=== PATIENT | female | born 1970 | race African-American/Black ===

== ENCOUNTER 2020-03-01 23:47 | Inpatient (IN) | payer MEDICAID, OTHER ==
[~2020-03-01] VITALS: Ht 152.4 cm; Wt 94.7 kg
[2020-03-02] MEDS ORDERED: LABETALOL HCL 5 MG/ML 4ML SYRINGE IV ONE (00:45)
[2020-03-02 02:04] LABS: Basophils # (auto) 0 10 ^3/uL (0-0.2); Basophils % (auto) 0.7 % (0.0-2.0); Eosinophils # (auto) 0 10 ^3/uL (0-0.8); Eosinophils % (auto) 0.7 % (0.0-7.0); Hematocrit 38.1 % (36.0-46.0); Hemoglobin 12.5 g/dL (12.2-16.2); Lymphocytes # (auto) 1.8 10 ^3/uL (0.4-5.4); Lymphocytes % (auto) 39.3 % (10.0-50.0); Mean Corpuscular Hemoglobin 28.3 pg (28.0-32.0); Mean Corpuscular Hgb Conc. 32.7 g/dL (32.0-36.0); Mean Corpuscular Volume 86.6 fL (80.0-100.0); Monocytes # (auto) 0.4 10 ^3/uL (0-1.3); Monocytes % (auto) 9.5 % (0.0-12.0); Neutrophils # (auto) 2.3 10 ^3/uL (1.6-8.6); Neutrophils % (auto) 49.8 % (37.0-80.0); Nucleated Red Blood Cells % 0.1 %; Platelet Count (auto) 235 10^3/uL (140-450); Red Cell Distribution Width 19.6 % (11.8-14.3); White Blood Cell 4.5 10^3/uL (4.4-10.8)
[2020-03-02 02:11] LABS: INR 1.03 (0.9-1.15); Partial Thromboplastin Time 24.3 sec (23.64-32.05)
[2020-03-02 02:15] LABS: Alanine Aminotransferase 58 U/L (13-56); Anion Gap 10 (5-15); Aspartate Aminotransferase 68 U/L (15-37); Blood Urea Nitrogen 9 mg/dL (7-18); Calcium 8.4 mg/dL (8.5-10.1); Carbon Dioxide 26 mmol/L (21-32); Chloride 103 mmol/L (98-107); GFR African American 76 mL/min; GFR Non-African American 63 mL/min; Glucose 100 mg/dL (74-106); Magnesium 1.7 mg/dL (1.6-2.6); Sodium 139 mmol/L (136-145)
[2020-03-02 02:16] LABS: Potassium 2.5 mmol/L (3.5-5.1)
[2020-03-02 02:20] LABS: Alkaline Phosphatase 156 U/L (45-117); Bilirubin, Total 0.8 mg/dL (0.2-1.0); Total Protein 7.1 g/dL (6.4-8.2)
[2020-03-02 02:22] LABS: Alcohol, Urine < 3.0 mg/dL (0-10); Amphetamine Screen, Urine NEGATIVE (NEGATIVE); Barbiturate Scree,Urine NEGATIVE (NEGATIVE); Benzodiazephine Screen, Urine NEGATIVE (NEGATIVE); Cannabinoid Screen, Urine NEGATIVE (NEGATIVE); Cocaine Screen, Urine NEGATIVE (NEGATIVE); Opiate Scree,Urine NEGATIVE (NEGATIVE); Phencyclidine Screen, Urine NEGATIVE (NEGATIVE)
[2020-03-02] MEDS ORDERED: POTASSIUM EFFERVESENT TAB 25 MEQ PO ONE ×2 (03:00→04:00)
[2020-03-02] MEDS ORDERED: MORPHINE SULFATE 4 MG/ML SYR/VIAL IV PRN (04:00)
[2020-03-02] MEDS ORDERED: NITROGLYCERIN 0.4 MG SL TAB SL PRN ×2 (04:00)
[2020-03-02] MEDS ORDERED: ONDANSETRON HCL 4 MG/2 ML VIAL IV PRN (04:00)
[2020-03-02] MEDS ORDERED: LORazepam 0.5 MG TAB PO PRN (04:00)
[2020-03-02] MEDS ORDERED: ACETAMINOPHEN 325 MG TAB PO PRN (04:00)
[2020-03-02] MEDS: cloNIDine HCL 0.1 MG TAB PO PRN (05:08)
[2020-03-02 05:35] LABS: Basophils # (auto) 0 10 ^3/uL (0-0.2); Basophils % (auto) 0.4 % (0.0-2.0); Eosinophils # (auto) 0 10 ^3/uL (0-0.8); Eosinophils % (auto) 0.7 % (0.0-7.0); Hematocrit 38.9 % (36.0-46.0); Hemoglobin 12.9 g/dL (12.2-16.2); Lymphocytes # (auto) 1.9 10 ^3/uL (0.4-5.4); Lymphocytes % (auto) 38.4 % (10.0-50.0); Mean Corpuscular Hemoglobin 28.7 pg (28.0-32.0); Mean Corpuscular Hgb Conc. 33.2 g/dL (32.0-36.0); Mean Corpuscular Volume 86.4 fL (80.0-100.0); Monocytes # (auto) 0.4 10 ^3/uL (0-1.3); Monocytes % (auto) 7.6 % (0.0-12.0); Neutrophils # (auto) 2.6 10 ^3/uL (1.6-8.6); Neutrophils % (auto) 52.9 % (37.0-80.0); Nucleated Red Blood Cells % 0.1 %; Platelet Count (auto) 206 10^3/uL (140-450); Red Cell Distribution Width 19.5 % (11.8-14.3); White Blood Cell 4.9 10^3/uL (4.4-10.8)
[2020-03-02 06:09] LABS: BUN/Creatinine Ratio 6.1; Calcium 8.6 mg/dL (8.5-10.1)
[2020-03-02 06:24] LABS: Potassium 2.8 mmol/L (3.5-5.1)
[2020-03-02] MEDS ORDERED: POTASSIUM CHL 20MEQ/100ML 100 ML IV SCH (06:45)
[2020-03-02] MEDS: POTASSIUM CHL 20MEQ/100ML 100 ML IV SCH ×3 (08:37→13:20)
[2020-03-02] MEDS ORDERED: METOPROLOL TARTRATE 25 MG TAB PO SCH (10:00)
[2020-03-02] MEDS ORDERED: CLOPIDOGREL BISULFATE 75 MG TAB PO SCH (10:00)
[2020-03-02] MEDS: DOCUSATE SOD 100 MG CAP PO SCH (10:00)
[2020-03-02] MEDS: ASPirin 81 mg TAB PO SCH (10:10)
[2020-03-02] MEDS: LISINOPRIL 10 MG TAB PO SCH (10:12)
[2020-03-02] MEDS ORDERED: HCTZ25T PO (10:37)
[2020-03-02] MEDS ORDERED: AMLO10TA13 PO (10:37)
[2020-03-02] MEDS: ATORVASTATIN 20 MG TAB PO SCH (22:17)
[2020-03-02 22:19] VITALS: BP 158/76
--- NOTE | 2020-03-02 22:19 | NUR ---
Patient was brought up to the unit via stretcher from the emergency room. Patient is AO x4 ambulatory and on room air. She at the moment does not complain of chest pain or shortness of breath. Breath sounds were clear to auscultation. Plan of care was explained to her and all questions answered. Bed is locked in lowest position with side rails up x2. Will continue to monitor.
[2020-03-03] MEDS: cloNIDine HCL 0.1 MG TAB PO PRN ×2 (02:05→06:36)
[2020-03-03 05:00] VITALS: BP 162/77
--- NOTE | 2020-03-03 06:36 | NUR ---
Patient stated that she wants to go home to her kids. I explained the dangers of her going home with a dangerously high blood pressure as she did when she came in. She agreed to stay for now but said she wants to see the doctor. I explained that the doctor will make their rounds during the daytime and to write down any questions she may have for them.
--- NOTE | 2020-03-03 08:00 | NUR ---
RECEIVED PATIENT ALERT AND ORIENTED X4, NOT IN DISTRESS, CLEAR LS IN BILATERAL LUNG SOUNDS, RR=18 EBG=241%, DEEP BREATHING AND COUGHING WAS ENCOURAGED, DEMONSTRATED UNDERSTANDING, DENIED SOB AND CHEST PAIN AT THIS MOMENT, SR R=72 ON TELE MONITOR, ABDOMEN SOFT WITH ACTIVE BS IN ALL FOUR QUADRANTS, LAST BM ON 03/01/20 REPORTED, SKIN INTACT WARM TO TOUCH, AMBULATED IN THE ROOM, TOLERATED WELL, RESTING ON BED, DENIED PAIN, HEAD OF BED ELEVATED, BED ON LOW POSITION, RAILS UP X2, CALL LIGHT ON REACH, PENDING CARDIAC CONSULT, WILL CONTINUE MONITORING.
[2020-03-03 08:55] VITALS: BP 157/73
[2020-03-03] MEDS: ASPirin 81 mg TAB PO SCH (10:46)
[2020-03-03] MEDS: DOCUSATE SOD 100 MG CAP PO SCH (10:46)
[2020-03-03] MEDS: amLODIPine BESYLATE 5 MG TAB PO SCH (10:47)
[2020-03-03] MEDS: LISINOPRIL 10 MG TAB PO SCH ×3 (10:48→21:58)
--- NOTE | 2020-03-03 11:00 | NUR ---
POTASSIUM L=2.8 ON 03/02/20 REPORTED, NO LAB ORDER DONE TODAY, DR EWING WAS CALLED FOR UPDATES AND FOLLOW UP AND LEFT A MESSAGE, WAITING FOR CALL BACK.
[2020-03-03 12:23] VITALS: BP 156/78
--- NOTE | 2020-03-03 16:00 | NUR ---
PENDING ECHO ORDER AND POTASSIUM LEVEL REPORTED BY DR. WANG, DR. WANG AND DR. EWING WAS CALLED FOR UPDATES AND FOLLOW UP AND LEFT A MESSAGE, WAITING FOR CALL BACK.
[2020-03-03 16:47] LABS: BUN/Creatinine Ratio 8.1; Calcium 8.5 mg/dL (8.5-10.1); Potassium 3.4 mmol/L (3.5-5.1)
[2020-03-03 17:02] VITALS: BP 145/79
--- NOTE | 2020-03-03 19:34 | NUR ---
POTASSIUM L=3.4, DR. EWING WAS NOTIFIED,REPORT WAS GIVEN TO THE TOOLMAKER RN.
[2020-03-03] MEDS ORDERED: POTASSIUM CHL 20 Meq TABLET PO ONE (19:45)
[2020-03-03] MEDS: ATORVASTATIN 20 MG TAB PO SCH (21:57)
[2020-03-03 22:00] VITALS: BP 153/111
[2020-03-04 05:00] VITALS: BP 121/72
--- NOTE | 2020-03-04 07:20 | NUR ---
Opening Shift Note Assumed care of patient, pt awake and alert laying down in bed. Pt is on room air with even and unlabored respirations. No S/S of distress/SOB or pain at this time. bed is in lowest position, wheels are locked, side rails up x2, and call light is within reach. Instructed on POC and to call for assist PRN, will continue to monitor for changes Q1hr and PRN.
[2020-03-04 09:00] VITALS: BP 168/92
[2020-03-04] MEDS: DOCUSATE SOD 100 MG CAP PO SCH (09:12)
[2020-03-04] MEDS: LISINOPRIL 10 MG TAB PO SCH (09:12)
[2020-03-04] MEDS: ASPirin 81 mg TAB PO SCH (09:12)
[2020-03-04] MEDS: amLODIPine BESYLATE 5 MG TAB PO SCH (09:13)
--- NOTE | 2020-03-04 10:30 | NUR ---
LAB SCIENTIST AT BEDSIDE
[2020-03-04 13:00] VITALS: BP 135/63
--- NOTE | 2020-03-04 14:14 | NUR ---
SPOKE WITH DR. EWING SPOKE WITH DR. EWING RE: D/C AND LISINOPRIL RX. OK TO D/C PT AND CALL IN RX FOR LISINOPRIL TO PTS PHARMACY. PT INFORMED. WILL CARRY OUT D/C ORDER.
--- NOTE | 2020-03-04 15:24 | NUR ---
CALLED LISINOPRIL RX INTO PHARMACY. RX FOR LISINOPRIL CALLED INTO [facility] [address] [facility], . SPOKE WITH ELVIA, PT INFORMED.
--- NOTE | 2020-03-04 16:15 | NUR ---
Patient Discharged Discharge instructions given as ordered. Encourage to follow up with PMD as instructed. All questions and concerns addressed. Patient verbalized understanding. Medication reconciliation form completed and copy given to patient. IV removed with catheter intact, pressure dressing applied, patient tolerated well. Telemetry unit returned to ICU. Patient alert and awake, on RA, with even and unlabored respirations. Patient taken to vehicle via wheelchair with all personal belongings, accompanied by staff. No distress noted at time of departure.
== END 2020-03-04 16:15 | disposition home or self-care (01) | DRG 199 ==
LOC: EDBD 23:47 → ER 03-02 → OVERFLOW 03-02 00:01 → TELE-CENTR 03-02 22:17
PROVIDERS: ADMIT Hospitalist; ATTEND Internal Medicine
DX: I16.0 Hypertensive urgency (principal); R07.89 Other chest pain; E66.01 Morbid (severe) obesity due to excess calories; E87.6 Hypokalemia; F17.210 Nicotine dependence, cigarettes, uncomplicated; I10 Essential (primary) hypertension; Z68.41 Body mass index [BMI] 40.0-44.9, adult; I25.2 Old myocardial infarction; Z79.899 Other long term (current) drug therapy
CPT/HCPCS: 36415; 71045; 80048; 80053; 80061; 80307; 83735; 83880; 84443; 84484; 85025; 85379; 85610; 85730; 93005; 93306; 96374; 99291; G0378; J3480; J3490

== ENCOUNTER 2020-12-03 21:03 | Emergency (ER) | payer MEDICAID ==
[~2020-12-03] VITALS: Ht 165.1 cm; Wt 98.9 kg
[~2020-12-03 21:03] MED LIST: AMLO-496 PO
[2020-12-04 01:00] LABS: Basophils # (auto) 0 10 ^3/uL (0-0.2); Basophils % (auto) 0.4 % (0.0-2.0); Eosinophils # (auto) 0.1 10 ^3/uL (0-0.8); Hematocrit 35.2 % (36.0-46.0); Hemoglobin 11.7 g/dL (12.2-16.2); Lymphocytes # (auto) 1.5 10 ^3/uL (0.4-5.4); Lymphocytes % (auto) 20.5 % (10.0-50.0); Mean Corpuscular Hemoglobin 30.3 pg (28.0-32.0); Mean Corpuscular Hgb Conc. 33.3 g/dL (32.0-36.0); Monocytes # (auto) 0.6 10 ^3/uL (0-1.3); Monocytes % (auto) 7.8 % (0.0-12.0); Neutrophils # (auto) 5.3 10 ^3/uL (1.6-8.6); Neutrophils % (auto) 70.3 % (37.0-80.0); Nucleated Red Blood Cells % 0.1 %; Platelet Count (auto) 255 10^3/uL (140-450); Red Blood Cells 3.87 10^6/uL (4.0-5.20); Red Cell Distribution Width 14.6 % (11.8-14.3); White Blood Cell 7.5 10^3/uL (4.4-10.8)
[2020-12-04 01:21] LABS: Alanine Aminotransferase 25 U/L (13-56); Albumin 3.4 g/dL (3.4-5.0); Anion Gap 8 (5-15); Aspartate Aminotransferase 25 U/L (15-37); BUN/Creatinine Ratio 9.2; Blood Urea Nitrogen 8 mg/dL (7-18); Calcium 8.8 mg/dL (8.5-10.1); Carbon Dioxide 25 mmol/L (21-32); Chloride 103 mmol/L (98-107); GFR African American 89 mL/min; GFR Non-African American 74 mL/min; Glucose 111 mg/dL (74-106); Potassium 3.4 mmol/L (3.5-5.1); Sodium 136 mmol/L (136-145)
[2020-12-04 01:26] LABS: Alkaline Phosphatase 89 U/L (45-117); Bilirubin, Total 0.3 mg/dL (0.2-1.0); Total Protein 7.8 g/dL (6.4-8.2)
[2020-12-04] MEDS ORDERED: ACETAMINOPHEN 500 MG TAB PO ONE (01:30)
[2020-12-04] MEDS ORDERED: HYDROcodone-ACET 5/325MG TAB PO ONE (02:45)
[2020-12-04] MEDS ORDERED: ONDANSETRON ODT 4 MG TAB PO ONE (02:45)
[2020-12-04] MEDS ORDERED: HYDROcodone-ACET 10/325MG TAB PO ONE (03:00)
[2020-12-04 03:20] VITALS: BP 168/76
== END 2020-12-04 03:28 | disposition home or self-care (01) ==
LOC: ER 21:05
DX: M25.472 Effusion, left ankle (principal); R07.9 Chest pain, unspecified; I10 Essential (primary) hypertension; F17.210 Nicotine dependence, cigarettes, uncomplicated
CPT/HCPCS: 36415; 71045; 80053; 83880; 84484; 85025; 99284; Q0162

== ENCOUNTER 2022-06-07 21:43 | Emergency (ER) | payer MEDICAID ==
[~2022-06-07] VITALS: Ht 165.1 cm; Wt 79.0 kg
[2022-06-08 01:07] VITALS: BP 134/70
== END 2022-06-08 01:08 | disposition home or self-care (01) ==
LOC: ER 21:43
DX: M25.562 Pain in left knee (principal); M79.602 Pain in left arm; I10 Essential (primary) hypertension; Z86.73 Personal history of transient ischemic attack (TIA), and cerebral infarction without residual deficits
CPT/HCPCS: 73560

== ENCOUNTER 2022-12-01 18:09 | Emergency (ER) | payer MEDICAID ==
[~2022-12-01] VITALS: Ht 165.1 cm; Wt 186.0 kg
[2022-12-01 18:12] VITALS: BP 151/83
[2022-12-01 18:52] LABS: Eosinophils # (auto) 0.1 10 ^3/uL (0-0.8); Eosinophils % (auto) 1.3 % (0.0-7.0); Lymphocytes # (auto) 1.9 10 ^3/uL (0.4-5.4); Monocytes # (auto) 0.3 10 ^3/uL (0-1.3)
[2022-12-01 18:54] LABS: Basophils # (auto) 0 10 ^3/uL (0-0.2); Mean Corpuscular Hemoglobin 24.5 pg (28.0-32.0); Mean Corpuscular Hgb Conc. 32.5 g/dL (32.0-36.0); Mean Corpuscular Volume 75.5 fL (80.0-100.0); Monocytes % (auto) 5.6 % (0.0-12.0); Neutrophils # (auto) 2.3 10 ^3/uL (1.6-8.6); Neutrophils % (auto) 51.1 % (37.0-80.0); Nucleated Red Blood Cells % 0.2 %; Red Blood Cells 4.91 10^6/uL (4.0-5.20); Red Cell Distribution Width 17.7 % (11.8-14.3); White Blood Cell 4.6 10^3/uL (4.4-10.8)
[2022-12-01 19:10] LABS: INR 0.91 (0.9-1.15); Partial Thromboplastin Time 29.4 sec (24.6-33.4)
[2022-12-01 19:12] LABS: Albumin 3.6 g/dL (3.4-5.0); Calcium 9.7 mg/dL (8.5-10.1); Magnesium 1.9 mg/dL (1.6-2.6); Potassium 3.6 mmol/L (3.5-5.1)
[2022-12-01 19:15] LABS: Bilirubin, Total 0.4 mg/dL (0.2-1.0); Total Protein 7.7 g/dL (6.4-8.2)
[2022-12-01 22:12] LABS: Urine Bacteria FEW /hpf (None Seen); Urine Blood Negative /uL (Negative); Urine Specific Gravity 1.017 (1.001-1.035); Urine WBC 12 /hpf (0 - 5)
[2022-12-02] MEDS ORDERED: ACETAMINOPHEN 325 MG TAB PO PRN (01:45)
[2022-12-02] MEDS ORDERED: HYDROcodone-ACET 5/325MG TAB PO PRN (01:45)
[2022-12-02] MEDS ORDERED: NITROGLYCERIN 0.4 MG SL TAB SL PRN (01:45)
[2022-12-02] MEDS ORDERED: DOCUSATE SOD 100 MG CAP PO PRN (01:45)
[2022-12-02] MEDS ORDERED: MORPHINE SULFATE INJ 2 MG/ml SYRG IV PRN (01:45)
[2022-12-02] MEDS ORDERED: ONDANSETRON HCL 4 MG/2 ML VIAL IV PRN (01:45)
[2022-12-02] MEDS ORDERED: cefTRIAXone 1GM/50ML D5W 50 ML IV ONE (01:45)
[2022-12-02] MEDS ORDERED: SODIUM CHLOR 0.9% PF (SALINE LOCK) 10ML VIAL/SYR IV SCH (06:00)
[2022-12-02] MEDS ORDERED: cefTRIAXone 1GM/50ML D5W 50 ML IV SCH (09:00)
[2022-12-02] MEDS ORDERED: ATOR-47 PO (21:53)
[2022-12-02] MEDS ORDERED: GABA300C10 PO (21:53)
[2022-12-02] MEDS ORDERED: HYDR25TA5 PO (21:53)
[2022-12-02] MEDS ORDERED: ALLO100T PO (21:53)
[2022-12-03 05:15] LABS: Basophils # (auto) 0.1 10 ^3/uL (0-0.2); Eosinophils # (auto) 0.1 10 ^3/uL (0-0.8); Hemoglobin 11.6 g/dL (12.2-16.2); Lymphocytes # (auto) 2.5 10 ^3/uL (0.4-5.4); Monocytes # (auto) 0.3 10 ^3/uL (0-1.3); Nucleated Red Blood Cells % 0.1 %; White Blood Cell 4.9 10^3/uL (4.4-10.8)
[2022-12-03 05:18] LABS: Basophils % (auto) 1.2 % (0.0-2.0); Eosinophils % (auto) 1.6 % (0.0-7.0); Hematocrit 34.7 % (36.0-46.0); Lymphocytes % (auto) 51.5 % (10.0-50.0); Mean Corpuscular Hemoglobin 24.7 pg (28.0-32.0); Mean Corpuscular Hgb Conc. 33.4 g/dL (32.0-36.0); Mean Corpuscular Volume 73.9 fL (80.0-100.0); Neutrophils # (auto) 1.9 10 ^3/uL (1.6-8.6); Neutrophils % (auto) 38.7 % (37.0-80.0); Red Blood Cells 4.69 10^6/uL (4.0-5.20); Red Cell Distribution Width 17.6 % (11.8-14.3)
[2022-12-03 05:27] LABS: Potassium 3.2 mmol/L (3.5-5.1)
[2022-12-03 05:35] LABS: Albumin 3.2 g/dL (3.4-5.0); BUN/Creatinine Ratio 14.5 (10.0-20.0); Bilirubin, Total 0.9 mg/dL (0.2-1.0); Calcium 8.8 mg/dL (8.5-10.1)
[2022-12-03] MEDS ORDERED: POTA-264 PO (13:08)
[2022-12-03] MEDS ORDERED: HYDR-4798 PO (13:09)
== END 2022-12-02 02:40 | disposition left against medical advice (07) ==
LOC: ER 18:09 → TELE 12-02 01:40 → UNDOADMIN 12-02 01:40 → UNDODISIN 12-02 02:35
DX: G45.9 Transient cerebral ischemic attack, unspecified (principal); R20.2 Paresthesia of skin; E87.8 Other disorders of electrolyte and fluid balance, not elsewhere classified; D64.9 Anemia, unspecified; I12.9 Hypertensive chronic kidney disease with stage 1 through stage 4 chronic kidney disease, or unspecified chronic kidney disease; N18.9 Chronic kidney disease, unspecified; Z86.73 Personal history of transient ischemic attack (TIA), and cerebral infarction without residual deficits
CPT/HCPCS: 36415; 70450; 71045; 80053; 81001; 83735; 83880; 84484; 85025; 85610; 85730; 87086; 93005; G0378

== ENCOUNTER 2022-12-02 14:12 | Inpatient (IN) | payer MEDICAID ==
[~2022-12-02] VITALS: Ht 165.1 cm; Wt 86.5 kg
[2022-12-02] MEDS ORDERED: NITROGLYCERIN 0.4 MG SL TAB SL PRN (19:00)
[2022-12-02] MEDS ORDERED: MORPHINE SULFATE INJ 2 MG/ml SYRG IV PRN (19:00)
[2022-12-02] MEDS ORDERED: ACETAMINOPHEN 325 MG TAB PO PRN (19:00)
[2022-12-02] MEDS ORDERED: DOCUSATE SOD 100 MG CAP PO PRN (19:00)
[2022-12-02] MEDS ORDERED: HYDROcodone-ACET 5/325MG TAB PO PRN (19:00)
[2022-12-02] MEDS ORDERED: ONDANSETRON HCL 4 MG/2 ML VIAL IV PRN (19:00)
[2022-12-02 19:03] LABS: Urine Bacteria NONE SEEN /hpf (None Seen); Urine Blood Negative /uL (Negative); Urine WBC 5 /hpf (0 - 5)
[2022-12-02 19:04] LABS: Basophils # (auto) 0 10 ^3/uL (0-0.2); Basophils % (auto) 0.7 % (0.0-2.0); Eosinophils # (auto) 0.1 10 ^3/uL (0-0.8); Eosinophils % (auto) 1.2 % (0.0-7.0); Hematocrit 37.2 % (36.0-46.0); Hemoglobin 11.9 g/dL (12.2-16.2); Lymphocytes # (auto) 1.6 10 ^3/uL (0.4-5.4); Lymphocytes % (auto) 34.5 % (10.0-50.0); Mean Corpuscular Hemoglobin 24.4 pg (28.0-32.0); Mean Corpuscular Hgb Conc. 31.9 g/dL (32.0-36.0); Mean Corpuscular Volume 76.5 fL (80.0-100.0); Monocytes # (auto) 0.3 10 ^3/uL (0-1.3); Monocytes % (auto) 5.7 % (0.0-12.0); Neutrophils # (auto) 2.7 10 ^3/uL (1.6-8.6); Neutrophils % (auto) 57.9 % (37.0-80.0); Nucleated Red Blood Cells % 0.1 %; Red Blood Cells 4.86 10^6/uL (4.0-5.20); Red Cell Distribution Width 17.5 % (11.8-14.3); White Blood Cell 4.7 10^3/uL (4.4-10.8)
[2022-12-02 19:24] LABS: Albumin 3.3 g/dL (3.4-5.0); Potassium 3.5 mmol/L (3.5-5.1)
[2022-12-02 19:26] LABS: Bilirubin, Total 0.7 mg/dL (0.2-1.0); Total Protein 7.3 g/dL (6.4-8.2)
[2022-12-02 19:33] LABS: INR 0.97 (0.9-1.15); Partial Thromboplastin Time 26.8 sec (24.6-33.4)
[2022-12-02] MEDS ORDERED: ALLO100T PO (21:53)
[2022-12-02] MEDS ORDERED: GABA300C10 PO (21:53)
[2022-12-02] MEDS ORDERED: ATOR-47 PO (21:53)
[2022-12-02] MEDS ORDERED: HYDR25TA5 PO (21:53)
[2022-12-02] MEDS ORDERED: HCTZ 25 MG TAB PO SCH (22:00)
[2022-12-02] MEDS ORDERED: LORazepam 2MG/ML-1ML VIAL IV PRN (22:15)
[2022-12-02] MEDS: SODIUM CHLOR 0.9% PF (SALINE LOCK) 10ML VIAL/SYR IV SCH (22:27)
[2022-12-02 22:37] LABS: Cholesterol 120 mg/dL (< 200); Triglycerides 109 mg/dL (< 150)
[2022-12-02 22:40] LABS: HDL Cholesterol 44 mg/dL (40-59); LDL Cholesterol 66 mg/dL (< 100)
[2022-12-02] MEDS: ATORVASTATIN 20 MG TAB PO SCH (23:05)
[2022-12-02] MEDS: GABAPENTIN 300 MG CAP PO SCH (23:05)
[2022-12-03] MEDS: SODIUM CHLOR 0.9% PF (SALINE LOCK) 10ML VIAL/SYR IV SCH ×3 (06:19→21:14)
[2022-12-03] MEDS: HCTZ 25 MG TAB PO SCH ×2 (06:34→18:00)
[2022-12-03] MEDS ORDERED: amLODIPine BESYLATE 5 MG TAB PO SCH (10:00)
[2022-12-03] MEDS: ALLOPURINOL 100 MG TAB PO SCH (10:08)
[2022-12-03] MEDS: GABAPENTIN 300 MG CAP PO SCH ×2 (10:09→21:14)
[2022-12-03 12:51] VITALS: BP 129/79
[2022-12-03] MEDS ORDERED: POTA-264 PO (13:08)
[2022-12-03] MEDS ORDERED: HYDR-4798 PO (13:09)
[2022-12-03] MEDS: SOD CHL 0.45% 1,000 ML IV SCH (14:41)
[2022-12-03 16:00] VITALS: BP 130/75
[2022-12-03] MEDS ORDERED: IOHEXOL 350 MG/ML 100ML IJ ONE (18:17)
[2022-12-03] MEDS: ATORVASTATIN 20 MG TAB PO SCH (21:13)
[2022-12-03] MEDS: LISINOPRIL 10 MG TAB PO SCH (21:14)
[2022-12-03 22:00] VITALS: BP 140/53
[2022-12-04] MEDS: SOD CHL 0.45% 1,000 ML IV SCH ×3 (03:52→21:35)
[2022-12-04 05:00] VITALS: BP 130/70
[2022-12-04] MEDS: HCTZ 25 MG TAB PO SCH ×2 (05:23→18:00)
[2022-12-04] MEDS: SODIUM CHLOR 0.9% PF (SALINE LOCK) 10ML VIAL/SYR IV SCH ×3 (05:24→21:35)
[2022-12-04 09:00] VITALS: BP 135/75
[2022-12-04] MEDS: cefTRIAXone 1GM/50ML D5W 50 ML IV SCH (09:12)
[2022-12-04] MEDS: GABAPENTIN 300 MG CAP PO SCH ×2 (09:12→21:35)
[2022-12-04] MEDS: ALLOPURINOL 100 MG TAB PO SCH (09:13)
[2022-12-04] MEDS: LISINOPRIL 10 MG TAB PO SCH ×3 (09:21→21:37)
[2022-12-04] MEDS ORDERED: ASPirin-EC 81 mg tab PO SCH (10:00)
[2022-12-04] MEDS ORDERED: CLOPIDOGREL BISULFATE 75 MG TAB PO SCH (10:00)
[2022-12-04 13:00] VITALS: BP 130/69
[2022-12-04 16:49] VITALS: BP 117/72
[2022-12-04 17:06] LABS: Alcohol, Urine < 3.0 mg/dL (0-10); Amphetamine Screen, Urine NEGATIVE (NEGATIVE); Barbiturate Scree,Urine NEGATIVE (NEGATIVE); Benzodiazephine Screen, Urine NEGATIVE (NEGATIVE); Cannabinoid Screen, Urine POSITIVE (NEGATIVE); Cocaine Screen, Urine NEGATIVE (NEGATIVE); Opiate Scree,Urine NEGATIVE (NEGATIVE); Phencyclidine Screen, Urine NEGATIVE (NEGATIVE)
[2022-12-04 22:00] VITALS: BP 121/99
[2022-12-05 05:00] VITALS: BP 133/77
[2022-12-05] MEDS: HCTZ 25 MG TAB PO SCH (06:00)
[2022-12-05] MEDS: SODIUM CHLOR 0.9% PF (SALINE LOCK) 10ML VIAL/SYR IV SCH ×2 (06:13→14:00)
[2022-12-05] MEDS: ALLOPURINOL 100 MG TAB PO SCH (08:47)
[2022-12-05] MEDS: GABAPENTIN 300 MG CAP PO SCH (08:47)
[2022-12-05] MEDS: cefTRIAXone 1GM/50ML D5W 50 ML IV SCH (08:47)
[2022-12-05] MEDS: LISINOPRIL 10 MG TAB PO SCH (08:58)
[2022-12-05 09:00] VITALS: BP 138/71
[2022-12-05 13:00] VITALS: BP 147/77
[2022-12-05] MEDS ORDERED: LISINOPRIL 10 MG TAB PO ONE (13:00)
[2022-12-05 13:55] VITALS: BP 147/77
== END 2022-12-05 15:00 | disposition home or self-care (01) | DRG 199 ==
LOC: ER 14:12 → TELE 18:59 → TELE-CENTR 12-03 12:27
PROVIDERS: ADMIT Nurse Practitioner Family; ATTEND Hospitalist
DX: I16.1 Hypertensive emergency (principal); E44.1 Mild protein-calorie malnutrition; G45.9 Transient cerebral ischemic attack, unspecified; I69.354 Hemiplegia and hemiparesis following cerebral infarction affecting left non-dominant side; R53.1 Weakness; Z20.822 Contact with and (suspected) exposure to COVID-19; M10.9 Gout, unspecified; N18.9 Chronic kidney disease, unspecified; I12.9 Hypertensive chronic kidney disease with stage 1 through stage 4 chronic kidney disease, or unspecified chronic kidney disease; N39.0 Urinary tract infection, site not specified; F17.200 Nicotine dependence, unspecified, uncomplicated; Z82.49 Family history of ischemic heart disease and other diseases of the circulatory system; Z68.31 Body mass index [BMI] 31.0-31.9, adult
CPT/HCPCS: 36415; 70496; 70551; 80053; 80061; 80307; 81001; 83036; 85025; 85610; 85730; 87426; 93306; 93886; 97163; G0378; J0696

== ENCOUNTER 2023-07-31 14:43 | Emergency (ER) | payer MEDICAID ==
[~2023-07-31] VITALS: Ht 165.1 cm; Wt 88.2 kg
[~2023-07-31 14:43] MED LIST changes: +ALLO100T PO; -AMLO-496 PO; +AMLO1TAB23 PO; +ATOR-47 PO; +GABA-1250 PO; +HYDR-4798 PO; +HYDR25TA5 PO; +POTA-264 PO
[2023-07-31] MEDS ORDERED: ONDANSETRON HCL 4 MG/2 ML VIAL IV ONE (15:15)
[2023-07-31] MEDS ORDERED: MORPHINE SULFATE 4 MG/ML SYR/VIAL IV ONE (15:15)
[2023-07-31 16:03] LABS: Basophils # (auto) 0.1 10 ^3/uL (0-0.2); Eosinophils # (auto) 0.1 10 ^3/uL (0-0.8); Hemoglobin 11.2 g/dL (12.2-16.2); Lymphocytes # (auto) 1.9 10 ^3/uL (0.4-5.4); Mean Corpuscular Volume 73.4 fL (80.0-100.0); Monocytes # (auto) 0.5 10 ^3/uL (0-1.3); Nucleated Red Blood Cells % 0.1 %; White Blood Cell 6.8 10^3/uL (4.4-10.8)
[2023-07-31 16:05] LABS: Eosinophils % (auto) 1.2 % (0.0-7.0); Hematocrit 35.9 % (36.0-46.0); Lymphocytes % (auto) 27.8 % (10.0-50.0); Mean Corpuscular Hemoglobin 22.9 pg (28.0-32.0); Mean Corpuscular Hgb Conc. 31.2 g/dL (32.0-36.0); Monocytes % (auto) 6.9 % (0.0-12.0); Neutrophils # (auto) 4.3 10 ^3/uL (1.6-8.6); Neutrophils % (auto) 63.1 % (37.0-80.0); Red Blood Cells 4.89 10^6/uL (4.0-5.20); Red Cell Distribution Width 16.5 % (11.8-14.3)
[2023-07-31 16:12] LABS: Urine Bacteria FEW /hpf (None Seen); Urine Blood Negative /uL (Negative); Urine Budding Yeast OCCASIONAL /hpf (None Seen); Urine Clarity HAZY (Clear); Urine Color Yellow (Yellow); Urine Protein, UAD TRACE (Negative); Urine Specific Gravity 1.017 (1.001-1.035); Urine WBC 7 /hpf (0 - 5)
[2023-07-31 16:16] LABS: Alanine Aminotransferase 21 U/L (7-40); Albumin 4.8 g/dL (3.2-4.8); Alkaline Phosphatase 133 U/L (46-116); Anion Gap 9 (5-15); Aspartate Aminotransferase 19 U/L (13-40); BUN/Creatinine Ratio 10.3 (10.0-20.0); Blood Urea Nitrogen 12 mg/dL (9-23); Carbon Dioxide 25 mmol/L (20-30); Chloride 104 mmol/L (98-107); Glucose 79 mg/dL (74-106); Potassium 3.7 mmol/L (3.5-5.1); Sodium 138 mmol/L (136-145)
[2023-07-31 16:17] LABS: Bilirubin, Total 0.6 mg/dL (0.2-1.0); Total Protein 7.8 g/dL (5.7-8.2)
[2023-07-31 17:00] LABS: Lipase 35 U/L (12-53)
[2023-07-31] MEDS ORDERED: TRAM50TA2 PO (17:40)
[2023-07-31 19:11] VITALS: BP 126/72; PULSE 72; RESP 16; TEMP 98.4; O2SAT 100
== END 2023-07-31 19:14 | disposition home or self-care (01) ==
LOC: ER 14:43
DX: K80.20 Calculus of gallbladder without cholecystitis without obstruction (principal); R51.9 Headache, unspecified; I10 Essential (primary) hypertension; E78.5 Hyperlipidemia, unspecified; M10.9 Gout, unspecified; Z86.73 Personal history of transient ischemic attack (TIA), and cerebral infarction without residual deficits; Z79.899 Other long term (current) drug therapy
CPT/HCPCS: 36415; 70450; 74176; 80053; 81001; 83690; 85025

== ENCOUNTER 2023-08-05 13:43 | Emergency (ER) | payer MEDICAID ==
[~2023-08-05] VITALS: Ht 165.1 cm; Wt 86.5 kg
[~2023-08-05 13:43] MED LIST changes: +TRAM50TA2 PO
[2023-08-05 14:00] VITALS: BP 150/60; RESP 18; O2SAT 100
[2023-08-05 14:12] VITALS: PULSE 53
[2023-08-05 14:56] LABS: Neutrophils # (auto) 3.6 10 ^3/uL (1.6-8.6); Nucleated Red Blood Cells % 0.1 %; Red Cell Distribution Width 16.5 % (11.8-14.3)
[2023-08-05 14:59] LABS: Basophils # (auto) 0.1 10 ^3/uL (0-0.2); Basophils % (auto) 1.1 % (0.0-2.0); Eosinophils # (auto) 0 10 ^3/uL (0-0.8); Eosinophils % (auto) 0.6 % (0.0-7.0); Hematocrit 35.3 % (36.0-46.0); Hemoglobin 11.3 g/dL (12.2-16.2); Lymphocytes # (auto) 1.9 10 ^3/uL (0.4-5.4); Lymphocytes % (auto) 31.4 % (10.0-50.0); Mean Corpuscular Hemoglobin 23.4 pg (28.0-32.0); Mean Corpuscular Volume 73.3 fL (80.0-100.0); Monocytes # (auto) 0.4 10 ^3/uL (0-1.3); Monocytes % (auto) 6.8 % (0.0-12.0); Neutrophils % (auto) 60.1 % (37.0-80.0); Red Blood Cells 4.81 10^6/uL (4.0-5.20)
[2023-08-05 15:13] LABS: Alanine Aminotransferase 20 U/L (7-40); Albumin 4.8 g/dL (3.2-4.8); Alkaline Phosphatase 119 U/L (46-116); Amylase 136 U/L (30-118); Anion Gap 11 (5-15); Aspartate Aminotransferase 22 U/L (13-40); BUN/Creatinine Ratio 7.3 (10.0-20.0); Bilirubin, Total 0.8 mg/dL (0.2-1.0); Blood Urea Nitrogen 8 mg/dL (9-23); Calcium 9.8 mg/dL (8.5-10.1); Carbon Dioxide 23 mmol/L (20-30); Chloride 105 mmol/L (98-107); Glucose 91 mg/dL (74-106); Potassium 3.6 mmol/L (3.5-5.1); Sodium 139 mmol/L (136-145); Total Protein 7.9 g/dL (5.7-8.2)
[2023-08-05 15:16] LABS: Lipase 39 U/L (12-53); Magnesium 1.9 mg/dL (1.6-2.6)
[2023-08-05 15:24] LABS: Urine Bacteria NONE SEEN /hpf (None Seen); Urine Blood Negative /uL (Negative); Urine Clarity HAZY (Clear); Urine Color Yellow (Yellow); Urine Mucus FEW (None Seen); Urine Protein, UAD 1+ (Negative); Urine Specific Gravity 1.019 (1.001-1.035); Urine Urobilinogen Normal (Negative); Urine WBC 9 /hpf (0 - 5)
== END 2023-08-05 19:36 | disposition left against medical advice (07) ==
LOC: ER 13:43
DX: K80.20 Calculus of gallbladder without cholecystitis without obstruction (principal); E78.5 Hyperlipidemia, unspecified; I10 Essential (primary) hypertension; F12.10 Cannabis abuse, uncomplicated; Z86.73 Personal history of transient ischemic attack (TIA), and cerebral infarction without residual deficits; Z87.442 Personal history of urinary calculi
CPT/HCPCS: 36415; 76705; 80053; 81001; 82150; 83690; 83735; 84484; 85025; 93005